=== PATIENT | female | born 1975 | race Caucasian/White ===

== ENCOUNTER 2022-10-27 17:28 | Emergency (ER) | payer BC, MEDICARE, SELFPAY ==
[2022-10-27 17:33] VITALS: BP 149/89; PULSE 70; RESP 20; TEMP 36.7; O2SAT 100; BMI 27.3
--- NOTE | 2022-10-27 18:07 | ED_ITS ---
HPI - Dizziness General Chief Complaint: Dizziness/Vertigo Stated Complaint: Anxiety Vertigo Dizzy Nausea Headache Time Seen by Provider: 10/27/22 17:33 History of Present Illness HPI Narrative: This 47-year-old female comes in reporting vertigo and nausea symptoms for the past 2 or 3 days. She states that the symptoms come and go. If she remains still her symptoms are absent. She does not report any unilateral weakness or other neurologic deficit. She does not report a headache or hearing changes. She does have history of gastric bypass and wonders if her electrolytes and labs are normal. Related Data Home Medications Medication Instructions Recorded Confirmed trazodone 300 mg tablet 300 mg PO QPM 10/27/22 10/27/22 Previous Rx's Medication Instructions Recorded meclizine 25 mg tablet 25 mg PO QID #20 tabs 10/27/22 ondansetron HCl 4 mg tablet 4 mg PO Q6H #20 tabs 10/27/22 Allergies Allergy/AdvReac Type Severity Reaction Status Date / Time No Known Drug Allergies Allergy Verified 10/27/22 17:33 Review of Systems Status of ROS: Reports: 10 or more systems reviewed and unremarkable except as noted in History and below Narrative: Constitutional: No fevers, no weight gain or loss. Eyes: No discharge. No vision changes. HENT: No congestion, no sore throat, no ear pain. Cardiovascular: No chest pain, no palpitations. Respiratory: No shortness of breath, no wheezes, no cough. Gastrointestinal: No abdominal pain, no vomiting, no diarrhea. Genitourinary: No dysuria, no hematuria. Musculoskeletal: Normal range of motion. Skin: No rashes, no pruritis. Neurological: No weakness, sensory change, speech change. Vertigo symptoms as stated above. Endo/Heme/Allergies: No bruising or bleeding. No polydipsia. Pysch: no suicidality, no anxiety, no insomnia. All other systems reviewed and are negative. Exam Narrative: Exam Narrative: Constitutional: Well-developed, well-nourished, no acute distress. HEENT: Normocephalic, atraumatic. No nystagmus. Neck: Normal range of motion. Nontender. Supple. Heart: Regular. No murmurs. Normal rate. Intact distal pulses. Lungs: Clear to auscultation. No chest discomfort. No wheezes, rhonchi, or rales. Abdomen: Normal bowel sounds. Nontender. No rebound tenderness. Genitalia: Deferred. Back: No midline tenderness. Normal range of motion. Extremities: Normal range of motion. No injury. Skin: Intact. No rash. Warm. No erythema or pallor. Neurologic: No altered sensation. No weakness. Alert and oriented. Psychiatric: No suicidality. No anxiety or depression. No insomnia. Nursing notes and vitals signs are reviewed. Const: Vital Signs, click to edit/add: Vital Signs - 24 hr 10/27/22 17:33 Temperature 98.1 F Pulse Rate [Pulse Oximeter] 70 Respiratory Rate 20 Blood Pressure [Ri ght Upper Arm] 149/89 H Pulse Oximetry 100 Oxygen Delivery Me thod Room Air Course Vital Signs Vital signs: Initial Vital Signs Temperature 98.1 F 10/27/22 17:33 Temperature Source Temporal Artery Scan 10/27/22 17:33 Pulse Rate 70 10/27/22 17:33 Respiratory Rate 20 10/27/22 17:33 Blood Pressure 149/89 H 10/27/22 17:33 Blood Pressure Mean 109 H 10/27/22 17:33 Blood Pressure Position Sitting 10/27/22 17:33 Pulse Oximetry 100 10/27/22 17:33 Oxygen Delivery Method Room Air 10/27/22 17:33 Vital Signs Temperature 98.1 F 10/27/22 17:33 Pulse Rate 70 10/27/22 17:33 Respiratory Rate 20 10/27/22 17:33 Blood Pressure 149/89 H 10/27/22 17:33 Pulse Oximetry 100 10/27/22 17:33 Oxygen Delivery Method Room Air 10/27/22 17:33 Temperature 98.1 F 10/27/22 17:33 Pulse Rate 70 10/27/22 17:33 Respiratory Rate 20 10/27/22 17:33 Blood Pressure 149/89 H 10/27/22 17:33 Pulse Oximetry 100 10/27/22 17:33 Oxygen Delivery Method Room Air 10/27/22 17:33 MDM - Dizziness MDM Narrative Medical decision making narrative: This patient comes in with vertigo symptoms and some nausea. She also reports some anxiety symptoms. She has a history of gastric bypass in is concerned that her labs may be off. Labs are acquired and returned with normal results including normal vitamin B12 level. She did receive oral doses of meclizine and Zofran in this brought relief to her symptoms. She did later receive also a dose of Ativan 0.5 mg. The patient feels okay to return home. She did received prescriptions for meclizine and Zofran. Lab Data Labs: Lab Results 10/27/22 Range/Units 18:23 WBC 4.58 (4.50-11.00) K/uL RBC 4.83 (4.00-5.20) m/uL Hgb 13.4 (12.0-16.0) gm/dL Hct 40.9 (33.0-51.0) % MCV 85 (80-100) fL MCH 28 (26-34) pg MCHC 33 (32-36) gm/dL RDW Coeff of Jake 12.3 (11.5-15.5) % Plt Count 264 (140-440) K/uL Neut % (Auto) 56.6 (42.0-72.0) % Lymph % (Auto) 35.6 (20-44) % [place] % (Auto) 5.0 (0.0-11.0) % Eos % (Auto) 2.6 (0.0-7.0) % Baso % (Auto) 0.2 (0.0-3.0) % Neut # (Auto) 2.59 (1.7-7.0) K/uL Lymph # (Auto) 1.63 (0.90-2.90) K/uL [place] # (Auto) 0.20 (0.00-0.90) K/UL Eos # (Auto) 0.12 (0.00-0.50) K/uL Baso # (Auto) 0.01 (0.00-0.30) K/uL Sodium 141 (135-149) mmol/L Potassium 3.5 L (3.6-5.1) mmol/L Chloride 103 (96-114) mmol/L Carbon Dioxide 31 (20-32) mmol/L BUN 8 (5-24) mg/dL Creatinine 0.9 (0.5-1.5) mg/dL Estimated Creat Clear 83.56 Estimated GFR 79 ml/min Glucose 112 (60-115) mg/dL Calcium 9.1 (8.4-10.6) mg/dL Vitamin B12 309 (243-894) pg/mL Discharge Plan Discharge Clinical Impression: Acute vestibular neuronitis Patient Disposition: Home, Self-Care Condition: Improved Additional Instructions: Take medication as needed and directed. Follow up with MD or return if worsening. Prescriptions: New ondansetron HCl 4 mg tablet 4 mg PO Q6H Qty: 20 0RF meclizine 25 mg tablet 25 mg PO QID Qty: 20 0RF No Action trazodone 300 mg tablet 300 mg PO QPM Follow Up/Referrals: Amna Ibrahim DO [Primary Care Provider] - Stand Alone [facility]
[2022-10-27 18:30] LABS: Basophils Absolute Auto 0.01 K/uL (0.00-0.30); Basophils Percent Auto 0.2 % (0.0-3.0); Eosinophils Absolute Auto 0.12 K/uL (0.00-0.50); Eosinophils Percent Auto 2.6 % (0.0-7.0); Hematocrit 40.9 % (33.0-51.0); Hemoglobin* 13.4 gm/dL (12.0-16.0); Lymphocytes Absolute Auto 1.63 K/uL (0.90-2.90); Lymphocytes Percent Auto 35.6 % (20-44); Mean Corpuscular HGB Conc 33 gm/dL (32-36); Mean Corpuscular Hemoglobin 28 pg (26-34); Mean Corpuscular Volume 85 fL (80-100); Neutrophils Absolute Auto 2.59 K/uL (1.7-7.0); Neutrophils Percent Auto 56.6 % (42.0-72.0); Platelet Count* 264 K/uL (140-440); RDW Coefficient of Variation % 12.3 % (11.5-15.5); Red Blood Count 4.83 m/uL (4.00-5.20); White Blood Count* 4.58 K/uL (4.50-11.00)
[2022-10-27] MEDS: ONDANSETRON ODT 4 MG TAB PO (18:31)
[2022-10-27 18:37] LABS: Slide Review Reflex No
[2022-10-27] MEDS: MECLIZINE HCL 25 MG TABLET PO (18:40)
[2022-10-27 18:43] LABS: Chloride* 103 mmol/L (96-114); Sodium* 141 mmol/L (135-149)
[2022-10-27 18:44] LABS: Potassium* 3.5 mmol/L (3.6-5.1)
[2022-10-27 18:46] LABS: Creatinine* 0.9 mg/dL (0.5-1.5); Est. Creatinine Clearance* 83.56; Estimated Glomerular Filt Rate 79 ml/min
[2022-10-27 18:47] LABS: Blood Urea Nitrogen* 8 mg/dL (5-24); Calcium* 9.1 mg/dL (8.4-10.6); Carbon Dioxide* 31 mmol/L (20-32); Glucose* 112 mg/dL (60-115)
[2022-10-27 19:36] LABS: Vitamin B12* 309 pg/mL (243-894)
[2022-10-27] MEDS: LORazepam 0.5 MG TABLET PO (19:38)
== END 2022-10-27 20:49 | disposition home or self-care (01) ==
PROVIDERS: Emergency Provider Emergency Medicine Emergency Medical Services; PCP Family Medicine
DX: H81.20 Vestibular neuronitis, unspecified ear (principal)
CPT/HCPCS: 36415; 80048; 82607; 85025; 99283; 99284; A9270

== ENCOUNTER 2023-06-16 17:56 | Emergency (ER) | payer BC, MEDICARE, SELFPAY ==
[2023-06-16 18:02] VITALS: BP 133/82; PULSE 96; RESP 22; TEMP 36.4; O2SAT 97; BMI 26.5
--- NOTE | 2023-06-16 18:10 | ED_ITS ---
HPI - General Adult General Date Seen: 06/16/23 Chief complaint: Unspecified Complaint, Adult Stated complaint: full body pain, not able to sleep Time Seen by Provider: 06/16/23 18:10 History of Present Illness HPI narrative: This is a 48-year-old female accompanied to the ER today by her with concern for insomnia, body aches, anxiety. She had a left foot bunion surgery done by a surgeon, Dr. Briceno, at [facility] on 06/04-12 days ago. She was initially given a prescription for Tylenol with codeine for postoperative pain. Within a day or 2 after taking the surgery and after taking the Tylenol codeine she began to feel funny. She felt restless and anxious. She was not able to sleep. She saw her doctor in follow-up after surgery and was told that the wound was healing well. They changed her prescription from Tylenol with codeine to tramadol. She is really not having lot of foot pain. She has been taking the tramadol only sporadically. For the past 10 days or so she has had increasing anxiety, restlessness, and insomnia. She just can not really fall asleep because she just feels achy and anxious and warm. She has not actually had a fever. She has not taken the dressing of her foot since it was last changed in the clinic but she has not noticed any swelling, redness, or other abnormality of her toes or her foot above the dressing. She has not had much pain in her foot. No swelling of her leg. Her is an [id number] rewinder operator helper. He had been gone for a week. He came home today and he insisted that she come to the ER because she was so anxious and tearful at home. She does have a history of anxiety. She says that she has had is for restlessness and trouble sleeping in the past from other opiates. Related Data Home Medications Medication Instructions Recorded Confirmed trazodone 300 mg tablet 300 mg PO QPM 10/27/22 10/27/22 hydroxyzine pamoate 25 mg capsule PO 06/16/23 tramadol 50 mg tablet 50 mg PO Q6H PRN 06/16/23 06/16/23 Previous Rx's Medication Instructions Recorded meclizine 25 mg tablet 25 mg PO QID #20 tabs 10/27/22 ondansetron HCl 4 mg tablet 4 mg PO Q6H #20 tabs 10/27/22 Allergies Allergy/AdvReac Type Severity Reaction Status Date / Time No Known Drug Allergies Allergy Verified 10/27/22 17:33 [facility] Social History Smoking Status: Never smoker Do you use any of these nicotine containing products: None How often do you have a drink containing alcohol: never How often do you have six or more drinks on one occasion: Never AUDIT-C Alcohol total score: 0 Non-prescribed substance use: denies use Exam Narrative: Exam Narrative: Constitutional: Appears well-developed and well-nourished. Alert, but very anxious. She is tearful, crying. She has pressured speech. She says she ?just wants to go to sleep. ?. She has multiple concerns. seems supportive. They interact well together. HENT: Head: Atraumatic. Nose: Nose normal. Mouth/Throat: Oral mucosa is clear and moist. no trismus. Eyes: Conjunctivae normal. EOM normal. Pupils equal, round, and reactive to light. No scleral icterus. Neck: Normal range of motion. Neck supple. No tracheal deviation present. Cardiovascular: Normal rate, regular rhythm. No gallop. No friction rub. No murmur heard. Symmetric radial artery pulses Pulmonary/Chest: Effort normal. No stridor. No respiratory distress. No wheezes. No rales. No rhonchi . No tenderness. Abdominal: Soft. Bowel sounds normal. No distension. No mass. No tenderness. No rebound. No guarding. Musculoskeletal: RUE: Normal range of motion. No tenderness. No deformity LUE: Normal range of motion. No tenderness. No deformity RLE: Normal range of motion. No edema. No tenderness. No deformity LLE: Normal range of motion. No edema. No tenderness. No deformity Wearing a postoperative boot on her left foot. Removed. There is an Neville wrap and dressing in place. Removed for examination. The left foot looks good. There is no signs of any postoperative redness, swelling, purulent drainage, or other infection. Sutures are in place. Wound edges appear well apposed and dry. No evidence for any swelling of the ankle or calf to suggest DVT. Lymph: No ascending lymphangitis Neurological: Alert and oriented to person, place, and time. Normal strength. CN II-VII intact. No sensory deficit. GCS eye subscore is 4. GCS verbal subscore is 5. GCS motor subscore is 6. Normal coordination Skin: Skin is warm and dry. No rash noted. No pallor. Normal capillary refill. Psychiatric: Very anxious, tearful. Endorses insomnia for the past 10 days or so. She is very anxious with pressured speech and is tearful . She says multiple times that she just wants to sleep. She also has somewhat pressured speech. She jumps rapidly from symptom to symptom ensued including not sleeping, wanting to sleep, having body aches, and saying that her left foot really is not hurting. is supportive. She apparently has a history of similar insomnia and anxiety related to other opiate pain killers.. Const: Vital Signs, click to edit/add: Vital Signs - 24 hr 06/16/23 18:02 Temperature 97.5 F L Pulse Rate [Pulse Oximeter] 96 Respiratory Rate 22 Blood Pressure [Ri t Upper Arm] 133/82 Pulse Oximetry 97 Oxygen Delivery Me thod Room Air Course Course ED Course: Recheck-much calmer and more peaceful after receiving Ativan. Feels the urge to go to the bathroom so is getting her walking boot back on. please without much better she is doing. Vital Signs Vital signs: Initial Vital Signs Temperature 97.5 F L 06/16/23 18:02 Temperature Source Temporal Artery Scan 06/16/23 18:02 Pulse Rate 96 06/16/23 18:02 Respiratory Rate 22 06/16/23 18:02 Blood Pressure 133/82 06/16/23 18:02 Blood Pressure Mean 99 06/16/23 18:02 Blood Pressure Position Sitting 06/16/23 18:02 Pulse Oximetry 97 06/16/23 18:02 Oxygen Delivery Method Room Air 06/16/23 18:02 Vital Signs Temperature 97.5 F L 06/16/23 18:02 Pulse Rate 96 06/16/23 18:02 Respiratory Rate 22 06/16/23 18:02 Blood Pressure 133/82 06/16/23 18:02 Pulse Oximetry 97 06/16/23 18:02 Oxygen Delivery Method Room Air 06/16/23 18:02 Temperature 97.5 F L 06/16/23 18:02 Pulse Rate 96 06/16/23 18:02 Respiratory Rate 22 06/16/23 18:02 Blood Pressure 133/82 06/16/23 18:02 Pulse Oximetry 97 06/16/23 18:02 Oxygen Delivery Method Room Air 06/16/23 18:02 Medications Administered Medications: Discontinued Medications Generic Name Dose Route Start Last Admin Trade Name Pamela PRN Reason Stop Dose Admin Lorazepam 2 mg 06/16/23 18:20 06/16/23 18:26 Lorazepam 1 Mg Tablet PO 06/16/23 18:21 2 mg ONCE ONE Administration Medical Decision Making MDM Narrative Medical decision making narrative: This is a 48-year-old female presenting to the ER today with her with concern that she has had insomnia for the past week or 2 since she had her foot surgery. Upon presentation she was acutely anxious, hyperventilating, and seemed to be splaying symptoms panic attack. Initial differential was broad including panic, psychosis, drug intoxication such as sympathomimetics, thyrotoxicosis, delirium, alcohol withdrawal, among other conditions. She received oral Ativan with very good improvement. Patient also notes that her mother a year to go after a similar foot surgery so she may have just been very anxious about that. I reassured the patient that at this time there is no signs of any foot infection or sepsis. She did recently have left foot surgery. I re-evaluated her left foot carefully there is no sign of any foot infection. No evidence for left lower extremity DVT or other complications there. With good improvement after Ativan here in the ER I do not think the patient would benefit from further laboratory workup. Will discharge home with a short prescription for Ativan 1 mg tablets-10. That she can use p.r.n. for the next day or 2. Recommended close outpatient follow-up with her primary care, on Sunday. Precautions for return to the ER reviewed and questions answered. Discussed with the patient and her the need for follow-up. Discussed that we cannot give future refills for benzos through the ER. She endorses that she used to be on meds and trazodone but cannot see her psychiatrist because she is too anxious to go to the clinic for appointments. Her will make sure she gets outpatient follow-up. Discharge Plan Discharge Clinical Impression: Insomnia, Anxiety Instructions: Insomnia (ED), Anxiety (ED) Additional Instructions: Please follow-up with your regular doctor for recheck on Sunday to re-evaluate your insomnia and anxiety. If you have worsening anxiety, hallucinations, or if your family notices erratic behavior, confusion, or any other concerns, please come back to the ER right away. Right now the incision on your foot looks wonderful. Please follow-up with your surgeon this week as planned. If he develops any concerns about your foot, please call your surgeon, or come back to the ER right away to be rechecked. Prescriptions: No Action trazodone 300 mg tablet 300 mg PO QPM ondansetron HCl 4 mg tablet 4 mg PO Q6H Qty: 20 0RF meclizine 25 mg tablet 25 mg PO QID Qty: 20 0RF tramadol 50 mg tablet 50 mg PO Q6H PRN hydroxyzine pamoate 25 mg capsule PO Follow Up/Referrals: Amna Ibrahim, [Primary Care Provider] -
[2023-06-16] MEDS: LORazepam 1 MG TABLET 2 MG PO (18:26)
--- NOTE | 2023-06-16 18:48 | ED.NURSE ---
pt left foot re-wrapped with dressing and christiano wrap.
== END 2023-06-16 19:50 | disposition home or self-care (01) ==
PROVIDERS: Emergency Provider Emergency Medicine; PCP Family Medicine
DX: G47.00 Insomnia, unspecified (principal); F41.9 Anxiety disorder, unspecified
CPT/HCPCS: 99283; A9270

== ENCOUNTER 2023-08-02 16:00 | Outpatient (RCR) | payer BC, MEDICARE, SELFPAY | END 2023-10-11 13:36 | disposition home or self-care (01) | PROVIDERS: PCP Family Medicine; Visit Provider Family Medicine | DX: M54.50 Low back pain, unspecified (principal); G89.29 Other chronic pain; Z51.89 Encounter for other specified aftercare | CPT/HCPCS: 97110; 97140; 97162 ==

== ENCOUNTER 2024-03-28 12:36 | Outpatient (CLI) | payer MEDICARE, OTHER, SELFPAY ==
--- NOTE | 2024-03-28 13:28 | W.ANESCHARGE ---
Anesthesia Charges Start Date/Time Anesthesia Start Date: 03/28/24 Anesthesia Start Time: 13:22 Stop Date/Time Anesthesia Stop Date: 03/28/24 Anesthesia Stop Time: 13:51
--- NOTE | 2024-03-28 13:53 | W.ANESCHARGE ---
Anesthesia Charges Start Date/Time Anesthesia Start Date: 03/28/24 Anesthesia Start Time: 13:22 Stop Date/Time Anesthesia Stop Date: 03/28/24 Anesthesia Stop Time: 13:51
== END 2024-03-28 12:37 | disposition home or self-care (01) ==
LOC: OP CLINIC 12:39
PROVIDERS: PCP Family Medicine; Visit Provider Internal Medicine Gastroenterology
DX: R13.10 Dysphagia, unspecified (principal); K20.90 Esophagitis, unspecified without bleeding; Z98.84 Bariatric surgery status
CPT/HCPCS: 00731; 43245; J2704

== ENCOUNTER 2024-04-25 13:09 | Outpatient (CLI) | payer MEDICARE, OTHER, SELFPAY ==
--- NOTE | 2024-04-25 14:54 | W.ANESCHARGE ---
Anesthesia Charges Start Date/Time Anesthesia Start Date: 04/25/24 Anesthesia Start Time: 14:32 Stop Date/Time Anesthesia Stop Date: 04/25/24 Anesthesia Stop Time: 14:56
--- NOTE | 2024-04-25 14:58 | W.ANESCHARGE ---
Anesthesia Charges Start Date/Time Anesthesia Start Date: 04/25/24 Anesthesia Start Time: 14:32 Stop Date/Time Anesthesia Stop Date: 04/25/24 Anesthesia Stop Time: 14:56
--- NOTE | 2024-04-25 16:00 | CRLHL7_ITS ---
For Patients: As a result of the Century Cures Act, medical imaging exams and procedure reports are released immediately into your electronic medical record. You may view this report before your referring provider. If you have questions, please contact your health care provider. INDICATION: Abdominal pain, gastric stricture. TECHNIQUE: CT chest, abdomen, and pelvis without contrast. COMPARISON: CT abdomen and pelvis 06/12/2018. FINDINGS: CHEST: Lungs and pleura: Lungs and pleural spaces are clear. No suspicious nodules, infiltrates, or effusions. Cardiovascular structures: Heart size is normal. Thoracic aorta and main pulmonary artery are normal in caliber. Mediastinum and anselmo: No mass or adenopathy. Chest wall and axilla: No mass or adenopathy. Bilateral breast implants. Bones: Unremarkable for age. ABDOMEN AND PELVIS: Liver: Subcentimeter hypodense foci are too small to accurately characterize. Gallbladder and bile ducts: Cholelithiasis. No inflammation. No biliary ductal dilatation. Spleen: Unremarkable. Adrenal glands: Unremarkable. Pancreas: Unremarkable. Kidneys: Multiple bilateral renal cysts. Bilateral nonobstructive renal calculi. No hydronephrosis. GI tract: Perigastric postsurgical changes. GI tract is normal in caliber. No evidence of obstruction. Lymph nodes: Unremarkable. Vascular structures: Abdominal aorta is normal in caliber. Miscellaneous: Unremarkable. No free air or significant free fluid. Pelvic organs: Status post hysterectomy. Bones: Unremarkable for age. IMPRESSION: 1. No acute abnormality of the chest, abdomen, and pelvis on this noncontrast examination. 2. Cholelithiasis. 3. Bilateral nonobstructive nephrolithiasis. No obstructive uropathy. 4. Other incidental findings as above. Please note that all CT scans at this facility use dose modulation, iterative reconstruction, and/or weight-based dosing when appropriate to reduce radiation dose to as low as reasonably achievable. Dictated by Gary Henderson MD @ 04/25/2024 4:38:34 PM (Electronically Signed)
== END 2024-04-25 13:10 | disposition home or self-care (01) ==
PROVIDERS: PCP Family Medicine; Visit Provider Internal Medicine Gastroenterology
DX: R13.10 Dysphagia, unspecified (principal); K31.89 Other diseases of stomach and duodenum; K21.00 Gastro-esophageal reflux disease with esophagitis, without bleeding; Z98.84 Bariatric surgery status; R10.9 Unspecified abdominal pain; K80.20 Calculus of gallbladder without cholecystitis without obstruction; N20.0 Calculus of kidney
CPT/HCPCS: 00731; 43245; 71250; 74176; J2405; J2704; J3010

== ENCOUNTER 2024-12-19 15:50 | Emergency (ER) | payer MEDICARE, OTHER, SELFPAY ==
--- OUTSIDE RECORDS SUMMARY | 2024-12-19 15:52 | XMS_ITS | Clinical Summary ---
Author Organization [facility] Address [address] [place] [address] Care Team Providers Care Static Balancer Name Role Phone Amna Ibrahim DO Primary Care Provider [phone] Allergies Active Allergy Reactions Criticality Noted Date Comments Cat Dander Other - Describe In Comment Field 11/25/2019 Dust Mites Other - Describe In Comment Field 11/25/2019 Horse Dander Other - Describe In Comment Field 11/25/2019 Hydrocodone-Acetamin ophen Insomnia Low 06/01/2023 Is very Jittery on this medication. Can take it but prefers not to. Medications diclofenac topical (VOLTAREN) 1 % gelIndications:Capsu litis of foot Apply 1 g topically to affected area(s) 4 times daily if needed (pain). 20 g 08/02/19 24 Active traZODone (DESYREL) 100 mg tabletIndications:In somnia, unspecified type Take 2 Tablets (200 mg) by mouth at bedtime. 200 Tablet 3 03/17/20 24 Active zolpidem (AMBIEN) 5 mg tabletIndications:In somnia, idiopathic Take 1 Tablet (5 mg) by mouth at bedtime if needed for Sleep. 15 Tablet 12/11/19 25 Active hydrOXYzine HCL (ATARAX) 25 mg tabletIndications:In somnia, unspecified type,Anxiety Take 1-2 Tablets (25-50 mg) by mouth every 6 hours if needed for Anxiety (sleep). 30 Tablet 12/11/19 25 Active zolpidem (AMBIEN) 10 mg tabletIndications:In somnia, idiopathic Take 1 Tablet (10 mg) by mouth at bedtime if needed for Sleep. 15 Tablet 12/19/19 25 Active cholecalciferol (Vitamin D) 1,000 unit capsuleIndications:V itamin D deficiency Take 1 Capsule (1,000 units) by mouth once daily. 90 Capsule 3 07/05/19 24 025 Discontin ued(*Med complete/ Regimen complete/ Level of care change) omeprazole (PRILOSEC) 20 mg Delayed-Release capsuleIndications:H istory of gastric bypass,Dysphagia, unspecified type,Gastric stenosis,Gastric banding status Take 1 Capsule (20 mg) by mouth once daily before a meal. 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 Take 30-60 minutes before a meal/food once a day. 30 Capsule 11 04/25/20 24 025 Discontin ued(*Med complete/ Regimen complete/ Level of care change) zolpidem (AMBIEN) 10 mg tabletIndications:In somnia, idiopathic Take 1 Tablet (10 mg) by mouth at bedtime if needed for Sleep. 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 Omeprazole 20 mg QD recommended -repeat EGD in 4 weeks EGD 11/09 with stenosis, dilated. H/O total vaginal hysterectomy 08/25/2021 History of suburethral sling procedure 2 Cervical radiculopathy 08/25/2021 Allergic rhinitis 06/20/2021 Overview (06/20/2021): Overview: Env allergies Problem list name updated by automated process. Provider to review Pyelonephritis 06/20/2021 Hemorrhage of cyst of [place] kidney 06/20/2021 Panic disorder with agoraphobia 06/20/2021 B12 deficiency 02/16/2020 Controlled substance agreement signed 02/26/2017 History of social phobia 06/29/2014 Generalized anxiety disorder 05/06/2014 History of gastric bypass 04/29/2014 Vitamin D deficiency 04/29/2014 Iron deficiency anemia 04/29/2014 Leukopenia 04/04/2013 Menses painful 04/04/2013 ADPKD (autosomal dominant polycystic kidney dise ase) 03/04/2013 Overview (09/24/2017): Annual creatinine and urine testing Nephrolithiasis 03/04/2013 Bulimia nervosa, purging type 03/04/2013 Overview (02/13/2014): Under control per patient as of Jan 2014 Anemia 03/04/2013 Polycystic kidney 04/14/2009 Overview (06/20/2021): Overview: Per patient. 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 The leg/foot pain doesn't last long the hip/lower back pain does last a while. This has been happening for years but more frequently.) 12/10/2024 Travel 12/08/2024 Telephone [facility] [address] [place] [address] Amna Ibrahim DO Pain (Patient sent medical message for back pain.) from Last 3 Months Immunizations Immunization Administration Dates Next Due COVID-19 vaccine (Moderna 100mcg/0.5mL) PF, MDV 06/30/2020,06/02/2020 COVID-19 vaccine (Pfizer-Bio NTech 30mcg/0.3mL) PF, MDV 06/07/2021 Influenza, IIV3 (Age >=3 years) 04/04/20 13,02/27/2011,02/26/2008,2002 Influenza, IIV4 03/09/2020 MMR 01/10/1993 Td, Preservative Free (age > = 7 Years) 09/24/2017,01/14/1991 Tdap 07/12/2007 Tuberculin Skin Test, Unspecified 11/01/1994 Family History Medical History Relation Name Comments Asthma Father Melanoma Father Cancer Maternal Grandfather leukemi a Other Maternal Grandmother polycys tic kidneys Other Maternal Uncle polycystic ki dneys Alcoholism Mother Cancer Mother ovarian Cancer-ovarian Mother Depression Mother Hyperlipidemia Mother Melanoma Mother Other Mother polycystic kidn eys Other Sister polycystic kidn eys Anesthesia Problem No Family History Blood Disease No Family History Relation Name Status Comments Father Alive Maternal Grandfather Maternal Grandmother Maternal Uncle Mother Alive Sister Social History Tobacco Use Types Packs/Day Years Used Date Smoking Tobacco: Never Smokeless Tobacco: Never Tobacco Cessation:Counseling Given: Yes Alcohol Use Standard Drinks/Week Comments Not Currently 0 (1 standard drink = 0.6 oz pur e alcohol) sober since 2018 PHQ-2 Answer Date Recorded PHQ-2 TOTAL SCORE 3 03/17/2024 Social Connections Answer Date Recorded Do you often feel lonely or isolated from those around you? 0 12/10/2024 Alcohol Use Answer Date Recorded How often do you have a drink containing alcohol ? 1 11/03/2021 How many drinks containing a lcohol do you have on a typical day when you are drinking? 0 11/03/2021 How often do you have five or more drinks on one occasion? 0 11/03/2021 Financial Resource Strain Answer Date R ecorded Difficulty of Paying Living Expenses 3 12/10/2024 Difficulty of Paying Living Expenses Not on file 12/10/2024 Food Insecurity Answer Date Recorded Do you worry your food will run out before you are able to buy more? 1 12/10/2024 Transportation Needs Answer Date Record ed Does lack of transportation keep you from medica l appointments? 1 12/10/2024 Does lack of transportation keep you from work, meetings or getting things that you need? 1 12/10/2024 Housing Stability Answer Date Recorded What is your housing situation today? 1 12/10/2024 Utilities Answer Date Recorded Do you have trouble paying f or utilities (for example, heat, electricity, water, phone)? 1 12/10/2024 Comments No Sex and Gender Information Value Date Recorded Sex Assigned at Female 06/23/2020 1:57 PM NEWS ANALYST Legal Sex Female 6:57 AM NEWS ANALYST Gender Identity Female 06/23/2020 1:57 PM NEWS ANALYST Sexual Orientation Not on file Obstetrics History Para Term AB IAB SAB Ectopic Multiple Livin g Live Births 3 2 2 0 1 0 1 0 0 2 2 Date Outcome GA Total Labor Labor/2nd/3rd Weight Sex Type Anes PTL Eugenia A1 A5 Name Clin Term Living Term Living SAB Last Filed Vital Signs Vital Sign Reading Time Taken Comments Blood Pressure 92/67 12/10/2024 2:56 PM CDT Pulse 83 12/10/2024 2:56 PM CDT Temperature 36.3 C (97.4 F) 06/04/2023 11:21 AM NEWS ANALYST Respiratory Rate 16 06/04/2023 12:15 PM NEWS ANALYST Oxygen Saturation 99% 12/10/2024 2:56 PM CDT Inhaled Oxygen Concentration - - Weight 89.4 kg (197 lb 3.2 oz) 12/10/2024 2:56 P M CDT Height 177.8 cm (5' 10) 12/10/2024 2:56 PM CDT Body Mass Index 28.3 12/10/2024 2:56 PM CDT Plan of Treatment Upcoming Encounters Date Type Department Care Team (Late st Contact Info) Description 12/26/2024 12:40 PM CDT Office Visit [facility] [address] [place] [address] Salina Rangel MD [address] [place] [address] 12/29/2024 2:30 PM CDT Office Visit [facility] [address] [place] [address] Kevin Baker MD [address] [place] [address] 02/11/2025 2:40 PM CDT Office Visit [facility] [address] [place] [address] Eliseo Bruno MD [address] [place] [address] Scheduled Procedures Name Priority Associated Diagnoses Date/Ti me SURGICAL PROCEDURE (TYPE PRO CEDURE DESCRIPTION BELOW) Recurrent vomiting Health Maintenance Due Date Last Done Comments Hepatitis B series for 19+ (1 of 3 - 19+ 3-dose series) 1994 Mammogram for age 45-75 06/23/2021 06/23/2020, 04/30 COVID-19 vaccine series ( season) 2024 06/07/2021, 06/30/2020, 06/02/2020 Influenza Vaccine (#1) 2025 , 04/04/2013, 02/27/2011, Additional history exists Depression screening for age 12+ 03/19/2025 03/19/2024, 03/17/2024, 11/28/2022, Additional history exists BMI (ht and wt on same day) for age 18+ 12/10/2025 12/10/2024, 03/17/2024, 05/22/2023, Additional history exists Tetanus booster 09/25/2027 09/24/2017, 06/22, 01/14/1991 Colonoscopy through age 75 11/10/2027 11/09/2017, Lipids for age 45-75 03/17/2029 03/17/2024, 11/28/2022, 07/05/2021, Additional history exists HIV for age 15-65 Completed 11/28/2022 Hepatitis C screening for age 18-79 Completed 11/28/2022 Pneumococcal series for age 6-49 Aged Out No longer eligible based on patient's age to complete this topic Medical Devices Implanted Type Area Global Commodity Manager Device Identifier Shelf Expiration Date Model / Serial / Lot Arthrex Y-Plate 2.0mm Implanted:Qty: 1 on 06/04/2023 by Robbie Briceno DPM at [facility] Left: Foot [employer] [id number] P-1 2 / / Description:Arthrex Mini Fra g set: Arthrex Y-Plate 2.0mm, REF: [id number] José Manuel Bb Sm Non Thrd - [id number] Implanted:Qty: 1 on 06/04/2023 by Robbie Briceno DPM at [facility] Left: Foot [employer] [id number] -34 / / Description:Load [id number] Screw Bone 2.0x10mm Lock Variable Ang Titnm - [id number] Implanted:Qty: 2 on 06/04/2023 by Robbie Briceno DPM at [facility] Left: Foot [employer] [id number] V-1 0 / / Description:Load [id number] Screw Bone 2.0x12mm Titnm [place] - [id number] Implanted:Qty: 3 on 06/04/2023 by Robbie Briceno DPM at [facility] Left: Foot [employer] AR-[id number] V-1 2 / / Description:Load [id number] Screw Bone 2.0x14mm Lock Variable Ang Titnm - [id number] Implanted:Qty: 1 on 06/04/2023 by Robbie Briceno DPM at [facility] Left: Foot [employer] [id number] V-1 4 / / Description:Load [id number] Explanted Type Area Global Commodity Manager Device Identifier Shelf Expiration Date Model / Serial / Lot K-Wire .[id number] Dbl Trocar Smooth - [id number] Explanted:Qty: 1 on 06/04/2023 by Robbie Briceno DPM at [facility] Left: Mihai Dallas [facility] [id number] 24-45 / / Description:Load [id number] Procedures Procedure Name Priority Date/Time Associated Diagnosis Comments XR SACROILIAC JOINT 3 VIEWS BILATERAL Routine 12/10/2024 4:01 PM CDT Chronic right sacroiliac joint pain LIPID PANEL W REFLEX MEASURED LDL Routine 03/17/2024 3:14 PM CDT History of gastric bypass LC HIV-1/O/2, 4TH GENERATION Routine 11/28/2022 3:16 PM CDT Screening for HIV (human immunodeficiency virus) LC HCV ANTIBODY RFX TO QUANT PCR Routine 11/28/2022 3:16 PM CDT Need for hepatitis C screening test XR MAMMO BILAT SCREEN IMPLANT Routine 06/23/2020 4:20 PM NEWS ANALYST Visit for screening mammogram COLONOSCOPY 11/09/2017 11:16 AM CDT from Last 3 Months or Most Recently Relevant to Health Maintenance Results * XR SACROILIAC JOINT 3 VIEWS BILATERAL (12/10/2024 4:01 PM CDT) Anatomical Region Laterality Modality Pelvis, SI JOINTS Computed Radio graphy 12/14/2024 10:1 2 AM CDT Impressions 12/14/2024 10:12 AM CDT 1. The sacroiliac joints are unremarkable in appearance. Dictated by: Blane Valentin MD @ 12/14/2024 10:12:55 (Electronically Signed) Narrative 12/14/2024 10:12 AM CDT For Patients: As a result of the Cures Act, medical imaging exams and procedure reports are released immediately into your electronic medical record. You may view this report before your referring provider. If you have questions, please contact your health care provider. INDICATION: Chronic right sacroiliac joint pain TECHNIQUE: Sacroiliac Joint radiograph 3 views bilateral COMPARISON: None FINDINGS: Bone: No acute fractures or aggressive bone lesions are identified. Joint: The hip joint is unremarkable. The visualized sacroiliac joints are unremarkable in appearance. The pubic symphysis is normal in appearance. Soft tissue: Unremarkable. No radiopaque foreign bodies are seen. Procedure Note Blane Valentin MD - 12/14/2024 For Patients: As a result of the Cures Act, medical imagingexams and procedure reports are released immediately into your electronicmedical record. You may view this report before your referring provider.If you have questions, please contact your health care provider. INDICATION: Chronic right sacroiliac joint pain TECHNIQUE: Sacroiliac Joint radiograph 3 views bilateral COMPARISON: None FINDINGS: Bone: No acute fractures or aggressive bone lesions are identified. Joint: The hip joint is unremarkable. The visualized sacroiliac joints areunremarkable in appearance. The pubic symphysis is normal in appearance. Soft tissue: Unremarkable. No radiopaque foreign bodies are seen. IMPRESSION: 1. The sacroiliac joints are unremarkable in appearance. Dictated by: Blane Valentin MD @ 12/14/2024 10:12:55 (Electronically Signed) us Salina Rangel MD GENERAL IMAGING Final Resul t * (ABNORMAL) LIPID PANEL W REFLEX MEASURED LDL (03/17/2024 3:14 PM CDT) CHOLESTEROL, TOTAL 256(H) <200 mg/dL [facility] HDL CHOLESTEROL 64 > OR = 50 mg/dL [facility] TRIGLYCERIDES 204(H) <150 mg/dL [facility] Comment: If a non-fasting specimen was collected, consider repeat triglyceride testing on a fasting specimen if clinically indicated. Kristina et al. J. of Clin. Lipidol. 2015;9:129-169. LDL-CHOLESTEROL 156(H) mg/dL (calc) [facility] Comment: Reference range: <100 Desirable range <100 mg/dL for primary prevention; <70 mg/dL for patients with CHD or diabetic patients with > or = 2 CHD risk factors. LDL-C is now calculated using the Harris calculation, which is a validated novel method providing better accuracy than the Friedewald equation in the estimation of LDL-C. Lucio SS et al. GLORIA. 2013;310(19): 6613-4479 (http://education.The Local/faq/FXU720) CHOL/HDLC RATIO 4.0 <5.0 (calc) [facility] NON HDL CHOLESTEROL 192(H) <130 mg/dL (calc) [facility] Comment: For patients with diabetes plus 1 major ASCVD risk factor, treating to a non-HDL-C goal of <100 mg/dL (LDL-C of <70 mg/dL) is considered a therapeutic option. Blood BLOOD SPECIMEN / Unknown 03/17/2024 3:14 PM CDT 03/17/2024 3:14 PM CDT Salina Rangel MD CHEMISTRY Final Resul t [facility] [address] [address], [facility] [address] * LC HCV ANTIBODY RFX TO QUANT PCR (11/28/2022 3:16 PM CDT) [facility] HCV Ab Non Reactive Non Reactive 12/01/2022 10:06 PM CDT [facility] ([facility]) Blood BLOOD SPECIMEN / Unknown Venipuncture / Unknown 11/28/2022 3:16 PM CDT 11/28/2022 3:17 PM CDT Narrative [facility] ([facility]) - 12/01/2022 10:06 PM CDT Performed at: [address] [place] [id number] Drafter Seismograph: Reed Orona MD, Phone: [phone] Umang Rosen DO LABORATORY Final Result Performing Organization Address [facility] Co de Phone Number [facility] ([facility]) [address] [place] [address], [place] * LC HIV-1/O/2, 4TH GENERATION (11/28/2022 3:16 PM CDT) HIV Scr 4th Gen Non Reactive Non Reactive 11/30/2022 9:[address] [facility] ([facility]) Comment: HIV Negative HIV-1/HIV-2 antibodies and HIV-1 p24 antigen were NOT detected. There is no laboratory evidence of HIV infection. Blood BLOOD SPECIMEN / Unknown Venipuncture / Unknown 11/28/2022 3:16 PM CDT 11/28/2022 3:17 PM CDT Narrative [facility] ([facility]) - 11/30/2022 9:06 PM CDT Performed at: [address] [place] [id number] Drafter Seismograph: Reed Orona MD, Phone: [phone] Umang Rosen DO LABORATORY Final Result Performing Organization Address [facility] Co de Phone Number [facility] ([facility]) [address] [place] [address], [place] * XR MAMMO BILAT SCREEN IMPLANT (06/23/2020 4:20 PM NEWS ANALYST) Anatomical Region Laterality Modality BREASTS, Breast Left, Breast Right Bilateral Mammography Impressions 06/24/2020 3:34 PM NEWS ANALYST There is no radiographic evidence for malignancy. Recommend annual mammograms. A lay language report of this examination will be provided to the patient. MAMMOGRAM ASSESSMENT: ACR 2 Benign Narrative 06/24/2020 3:34 PM NEWS ANALYST XR MAMMO BILAT SCREEN IMPLANT [[id number]] CLINICAL HISTORY: This is an asymptomatic 45 y.o. patient. INDICATION FOR EXAM: Mammogram Screening. TECHNIQUE: CC & MLO views were obtained. This digital study was evaluated with the assistance of Computer-Aided Detection. COMPARISON FILMS: This is a baseline study. FINDINGS: The breasts are almost entirely fatty. No suspicious masses or microcalcifications. Implant(s) within both breasts. us Amna Ibrahim DO MAMMO Final Resu lt * COLONOSCOPY (11/09/2017 11:16 AM CDT) 11/09/2017 11:1 6 AM CDT Narrative Transcriptions Lucio Delgado MD - 11/09/2017 12:23 PM CDT Patient Name: Lillie Stein Procedure Date: 11/09/2017 Gender: Female Date of : 1975 Admit Type: Outpatient Procedure: Colonoscopy Proceduralist: Lucio Delgado MD , Cathie Trotter (Nurse) Referring MD: Amna Ibrahim Indications/Pre-Op Diagnosis: Last colonoscopy: October 2007, Rectalbleeding Medications: Fentanyl 150 micrograms IV, Midazolam 6 mgIV, The level of sedation administered wasmoderate Procedure Description: The patient had risks, benefits and alternatives explained to andgave informed consent. The patient had a stable cardiopulmonary status and judged an adequate candidate for conscious sedation. The colonoscope was passed through the anus and advanced to theterminal ileum. The colonoscopy was performed without difficulty. The patient tolerated the procedure well. The quality of the bowel preparationwas good. The terminal ileum, ileocecal valve, appendiceal orifice, and rectum were photographed. Complications: No immediate complications. Estimated Blood Loss & Specimen: Estimated blood loss: none. Specimen collected - None Findings: The perianal and digital rectal examinations were normal. Non-bleeding internal hemorrhoids were found. The hemorrhoids weresmall. A few small-mouthed diverticula were found in the sigmoid colon. The terminal ileum appeared normal. The exam was otherwise without abnormality on direct and retroflexion views. Impressions/Post-Op Diagnosis: - Non-bleeding internal hemorrhoids. - Diverticulosis in the sigmoid colon. - The examined portion of the ileum was normal. - The examination was otherwise normal on direct and retroflexionviews. - No specimens collected. Recommendation: - Patient has a contact number available for emergencies. The signsand symptoms of potential delayed complications were discussed with the patient. Return to normal activities tomorrow. Written discharge instructions were provided to the patient. - Resume previous diet. - Continue present medications. - Repeat colonoscopy in 10 years for screening purposes. Moderate Sedation: Moderate (conscious) sedation was administered by the endoscopy nurse and supervised by the endoscopist. The following parameters were monitored: oxygen saturation, heart rate, respiratory rate, blood pressure, adequacy of pulmonary ventilation and reponse to care. [facility] flowsheets and nursing notes for moderate sedation details. Total physician intraservice time was 16 minutes. Lucio Delgado MD 11/09/2017 12:23:29 PM This report has been signed electronically. Note Initiated On: 11/09/2017 11:16 AM Procedure Code(s): --- Professional --- 78545, Colonoscopy, flexible; diagnostic, including collection of specimen(s) bybrushing or washing, when performed (separateprocedure) Diagnosis Code(s): --- Professional --- K64.8, Other hemorrhoids K62.5, Hemorrhage of anus and rectum K57.30, Diverticulosis of large intestine without perforation or abscess withoutbleeding CPT copyright 2017 [employer]. All rights reserved. The codes documented in this report are preliminary and upon auditing coder reviewmay be revised to meet current compliance requirements. Scope In: 12:04:50 PM Scope Withdrawal Time 0 hours 8 minutes 30 seconds Scope Out: 12:18:14 PM Lucio Delgado MD PROCEDURE ORD Final Res ult from Last 3 Months or Most Recently Relevant to Health Maintenance Insurance MEDICARE [place] ONLY MEDICARE PART B HB ONLY Member Subscriber Plan / Payer (Ef fective 2013-Present) Name:Lillie Stein Member ID:[id number] Relation to Subscriber:Self Name:Lillie Stein Za Subscriber ID:[id number] Payer ID:Not on file Group ID:Not on file Type:Not on file Address: ATTN: CLAIMS [address] [place] [phone] MEDICARE PART A HB ONLY Member Subscriber Plan / Payer (Ef fective 2001-Present) Name:Emil Lillie L Member ID:[id number] Relation to Subscriber:Self Name:Lillie Stein Za Subscriber ID:[id number] Payer ID:Not on file Group ID:Not on file Type:Not on file Address: ATTN: CLAIMS [address] [facility] Care Teams Static Balancer Relationship Specialty Start Date End Date Amna Ibrahim DO [address] [place] [address] PCP - General Family Practice 06/08/14
[2024-12-19 16:03] VITALS: BP 127/88; PULSE 93; RESP 20; TEMP 36.6; O2SAT 98; BMI 28.0
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
--- NOTE | 2024-12-19 17:46 | CRLHL7_ITS ---
For Patients: As a result of the Century Cures Act, medical imaging exams and procedure reports are released immediately into your electronic medical record. You may view this report before your referring provider. If you have questions, please contact your health care provider. INDICATION: Frontal headache, rhinorrhea, photophobia TECHNIQUE: Noncontrast axial CT of the head. Coronal and sagittal reformats. Bone and soft tissue algorithms. COMPARISON: None. FINDINGS: The ventricles and cortical sulci appear age-appropriate. No midline shift or mass effect. No acute intracranial hemorrhage or extra-axial fluid collection. Arrington-white matter differentiation is grossly maintained. White matter attenuation is within normal limits. Intracranial vessels are unremarkable for technique. Midline structures are unremarkable. The calvarium appears grossly intact. Paranasal sinuses and mastoid air cells are clear. Orbits are unremarkable. IMPRESSION: 1. No CT evidence of acute intracranial abnormality. Please note that all CT scans at this facility use dose modulation, iterative reconstruction, and/or weight-based dosing when appropriate to reduce radiation dose to as low as reasonably achievable. Dictated by Krystyna Hernandez MD @ 12/19/2024 6:28:16 PM (Electronically Signed)
[2024-12-19] MEDS: METOCLOPRAMIDE HCL 5 MG/ML INJ 10 MG IVP (18:33)
[2024-12-19 18:37] LABS: Hematocrit 40.3 % (33.0-51.0); Hemoglobin* 12.8 gm/dL (12.0-16.0); Immature Granulocytes Abs Auto 0.00 K/uL (0.00-0.30); Immature Granulocytes Pct Auto 0.0 %; Lymphocytes Absolute Auto 2.88 K/uL (0.90-2.90); Mean Corpuscular HGB Conc 32 gm/dL (32-36); Mean Corpuscular Hemoglobin 27 pg (26-34); Mean Corpuscular Volume 86 fL (80-100); RDW Coefficient of Variation % 13.7 % (11.5-15.5); Red Blood Count 4.69 m/uL (4.00-5.20); White Blood Count* 6.81 K/uL (4.50-11.00)
[2024-12-19 18:41] LABS: Slide Review Reflex No
[2024-12-19 18:49] LABS: Chloride* 103 mmol/L (96-114); Potassium* 3.9 mmol/L (3.6-5.1); Sodium* 137 mmol/L (135-149)
[2024-12-19 18:52] LABS: Blood Urea Nitrogen* 9 mg/dL (5-24); Creatinine* 1.0 mg/dL (0.5-1.5); Est. Creatinine Clearance* 73.59; Estimated Glomerular Filt Rate 69 ml/min
[2024-12-19 18:53] LABS: Anion Gap 5 mEq/L (7-15); Calcium* 9.3 mg/dL (8.4-10.6); Carbon Dioxide* 29 mmol/L (20-32); Glucose* 97 mg/dL (60-115)
== END 2024-12-19 19:54 | disposition home or self-care (01) ==
PROVIDERS: Emergency Provider Emergency Medicine; PCP Family Medicine
DX: R51.9 Headache, unspecified (principal)
CPT/HCPCS: 36415; 70450; 80048; 85025; 96374; 96375; 99283; 99284; J1200; J1885; J2765; J7030

== ENCOUNTER 2025-03-13 12:50 | Outpatient (CLI) | payer OTHER, MEDICARE, SELFPAY | END 2025-03-13 12:51 | disposition home or self-care (01) | LOC: INJ CL 12:52 | PROVIDERS: PCP Family Medicine; Visit Provider Family Medicine | DX: M54.16 Radiculopathy, lumbar region (principal); M51.369 Other intervertebral disc degeneration, lumbar region without mention of lumbar back pain or lower extremity pain | CPT/HCPCS: 62323; 64483; J0702; Q9966 ==